=== PATIENT | male | born 1990 | race Caucasian/White ===

== ENCOUNTER 2017-03-05 18:26 | Emergency (ER) | payer OTHER ==
[2017-03-05 18:38] VITALS: BP 96/61; PULSE 65; TEMP 98; BMI 17.6
--- NOTE | 2017-03-05 19:17 | PDOC ---
History of Present Illness - General Chief Complaint: Pain Stated Complaint: rt toe pain/swelling Time Seen by Provider: 03/05/17 18:55 History Source: Patient Exam Limitations: No Limitations - History of Present Illness Initial Comments: 03/05/17 19:11 Patient here with complaints of persistent swelling and infection to his left great toenail. 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 Comes in today with a swelling and mass to the medial aspect of that toe is, no purulent drainage today Severity: reports: mild, moderate Pain Location: reports: lower extremity (left great toe) Past History - Travel Traveled outside of the country in the last 30 days: No Close contact w/someone who was outside of country & ill: No - Past Medical History Allergies/Adverse Reactions: Allergies Allergy/AdvReac Type Severity Reaction Status Date / Time No Known Allergies Allergy Verified 03/05/17 18:34 Home Medications: Ambulatory Orders Sulfamethoxazole/Trimethoprim [Bactrim *Ds*] 1 each PO BID #14 tablet 03/05/17 Disorders: Yes (renal cyst) - Immunization History Immunization Up to Date: No - Psycho/Social/Smoking Cessation Hx Anxiety: No Suicidal Ideation: No Smoking History: Never smoked If you are a former smoker, when did you quit?: 2012 Hx Alcohol Use: No Drug/Substance Use Hx: No Substance Use Type: None Trauma Specific PMHX - Complaint Specific PMHX Back Injury: No Neck Injury: No Review of Systems - Review of Systems Able to Perform ROS?: Yes Is the patient limited Welsh proficient: Yes Constitutional: Yes: Symptoms Reported, See HPI. No: Fever, Malaise HEENTM: No: Symptoms Reported Respiratory: No: Symptoms reported Integumentary: Yes: Symptoms Reported, See HPI, Erythema (swelling and pain to lateral aspect to medial left toe) All Other Systems: Reviewed and Negative *Physical Exam - Vital Signs Last Vital Signs Temp Pulse Resp BP Pulse Ox 98 F 65 19 96/61 100 03/05/17 18:35 03/05/17 18:35 03/05/17 18:35 03/05/17 18:35 03/05/17 18:35 - Physical Exam General Appearance: Yes: Appropriately Dressed, Apparent Distress HEENT: positive: TRACY, TMs Normal, Pharynx Normal Respiratory/Chest: positive: Lungs Clear Gastrointestinal/Abdominal: positive: Normal Bowel Sounds, Soft. negative: Tender Extremity: positive: Normal Capillary Refill, Normal Range of Motion, Swelling, Erythema. negative: Normal Inspection Integumentary: positive: Swelling (hygienic granuloma noted to the medial aspect of his left great toe without further redness streaking or evidence of significant cellulitis to his foot. 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 We'll cover with antibiotics and encouraged to soak foot. Motrin for pain relief *DC/Admit/Observation/Transfer Diagnosis at time of Disposition: Pyogenic granuloma - Discharge Dispostion Disposition: HOME Condition at time of disposition: Stable Admit: No - Prescriptions Prescriptions: Sulfamethoxazole/Trimethoprim [Bactrim *Ds*] 1 each PO BID #14 tablet - Patient Instructions Printed Discharge Instructions: DI for Paronychia Additional Instructions: Rest, keep hand elevated Avoid heavy lifting or strenuous activity until healed Soak toe every 2-3 hours while awake for the next 2-3 days to keep continue to allow drainage Reapply bacitracin ointment and bulky dressing after each soaking May use ibuprofen or Tylenol for pain relief Followup with private physician in one to 2 days for wound check as needed Return immediately to emergency department or private doctor's for worsening redness, swelling, pain, streaking Take all of antibiotics until completed - Post Discharge Activity Work/School Note: Back to Work
== END 2017-03-05 19:19 | disposition home or self-care (01) ==
LOC: JERFT 18:26
DX: L98.0 Pyogenic granuloma (principal)
CPT/HCPCS: 99281-25

== ENCOUNTER 2019-08-23 20:15 | Emergency (ER) | payer SELFPAY ==
--- NOTE | 2019-08-23 20:56 | PDOC ---
Rapid Medical Evaluation Time Seen by Provider: 08/23/19 20:52 Medical Evaluation: Allergies Allergy/AdvReac Type Severity Reaction Status Date / Time No Known Allergies Allergy Verified 03/05/17 18:34 08/23/19 20:54 Pt c/o: lower back pain since last night, now with neck pain and left sided chest pressure constantly since last night, pain to chest worse with deep breathing Pt on brief exam: vss, no reproducible cp, lcta, Pt ordered for: ekg Pt to proceed to the ED Discharge Disposition - Diagnosis Pain - Referrals - Patient Instructions - Post Discharge Activity
[2019-08-23 20:57] VITALS: BMI 16.7
--- NOTE | 2019-08-24 00:24 | PDOC ---
History of Present Illness - General Chief Complaint: Pain Stated Complaint: abd pain Time Seen by Provider: 08/23/19 20:52 - History of Present Illness Initial Comments: Cali Powell is a 29yo man with no medical history who presents with low back pain and chest/upper abdominal pain for several days. He states that the pain is present whenever he is awake. There is no association with exertion, position , breathing, or movement, though it worsens when he is upset. He feels that the only thing that improves the pain is talking to friends or family. He denies any associated lightheadedness, difficulty breathing, sweating, nausea, vomiting , or other symptoms. He endorses drinking 15 drinks per day over the past 3-4 months after breatking up with his girlfriend; he also endorses a previous history of alcohol abuse. He has not had a drink for 3-4 days. He has never had withdrawal or seizures in the past. Past History - Past Medical History Allergies/Adverse Reactions: Allergies Allergy/AdvReac Type Severity Reaction Status Date / Time No Known Allergies Allergy Verified 08/23/19 20:57 Home Medications: Ambulatory Orders Sulfamethoxazole/Trimethoprim [Bactrim *Ds*] 1 each PO BID #14 tablet 03/05/17 COPD: No Disorders: Yes (renal cyst) - Immunization History Immunization Up to Date: No - Psycho Social/Smoking Cessation Hx Smoking History: Current every day smoker Have you smoked in the past 12 months: Yes Number of Cigarettes Smoked Daily: 5 If you are a former smoker, when did you quit?: 2012 Information on smoking cessation initiated: No Hx Alcohol Use: No Drug/Substance Use Hx: No Substance Use Type: None Review of Systems - Review of Systems Comments:: General: No fevers, no chills, no weight or appetite change, no malaise HEENT: No changes in vision, no changes in hearing, no congestion, no sore throat CV: + chest pain (resolved), no palpitations, no LE edema Pulm: No SOB, no cough, no wheezing GI: No nausea or vomiting, no change in bowel habits, no melena : No frequency, no urgency, no dysuria Musc: + low back pain, no joint swelling, no recent injury Skin: No rash, no lesions, no erythema Endo: No excessive thirst, no heat/cold intolerance Heme: No unusual bruising or bleeding, no swollen glands Neuro: No syncope, no numbness/tingling, no focal weakness Vasc: No claudication Psych: + upset recently 2/2 breakup w/ girlfriend, no SI or HI *Physical Exam - Vital Signs Last Vital Signs Temp Pulse Resp BP Pulse Ox 97.9 F 103 H 18 126/81 100 08/23/19 20:54 08/23/19 20:54 08/23/19 20:54 08/23/19 20:54 08/23/19 20:54 - Physical Exam General: Comfortable, no acute distress HEENT: Atraumatic, PERRL, EOMI, MMM, voice normal, normal neck ROM. No tongue fasciculations Cards: RRR, no murmur appreciated. No reproducible pain Pulm: Comfortable on room air, clear to auscultation bilaterally Abd: Soft, nontender, nondistended : No CVA tenderness Ext: Atraumatic. No LE edema. ROM intact. Strength 5/5 and equal bilaterally Vasc: Extremities WWP Skin: Normal color, no rashes or lesions Neuro: A&Ox3, CN grossly intact, normal speech, motor/sensory grossly intact and symmetric. Tremors in hands when extended Psych: Mood appropriate to situation ED Treatment Course - LABORATORY CBC & Chemistry Diagram: 08/24/19 00:50 08/24/19 00:50 Medical Decision Making - Medical Decision Making 08/24/19 00:23 Cali Powell is a 29yo man with no medical history who presents with low back pain and chest/upper abdominal pain for several days. The pain improves or resolves when he speaks with friends and family, and he denies any associated symptoms. He endorses drinking 15 drinks per day, no alcohol for the past 3 days. He has never had withdrawal or seizures in the past. - Pain that improves following conversation w/ family most likely due to anxiety. May also be musculoskeletal. Unlikely cardiac in a young, otherwise healthy person with no known risk factors. - EKG completed from triage. NSR, HR 94, normal axis, normal intervals. Prominent t-waves in V3 and V4, but no ST changes. - CBC, CMP to evaluate for electrolyte abnormalities - Acetaminophen for pain - Librium for slight shakiness - Will discuss rehab/detox 01/15/20 01:42 - Labs unremarkable - Pt reports pain is now resolved. Requesting to be discharged - Advised to go to detox, but pt says he will consider going tomorrow. Does not want to be sent to detox from the ED. - Will discharge home with PMD follow up Discussed with Dr Joel Larson PGY2 Discharge - Discharge Information Problems reviewed: Yes Clinical Impression/Diagnosis: Pain, Alcohol abuse Condition: Stable Disposition: HOME - Admission No - Follow up/Referral - Patient Discharge Instructions Patient Printed Discharge Instructions: DI for Alcohol Abuse Additional Instructions: Discharge Instructions: You were seen in the emergency department for pain. Your blood tests and EKG did not show any concerning changes. Your symptoms may be partially due to your alcohol abuse and anxiety. Home Care and Follow Up: - You may use over the counter medications as needed for pain at home. 650- 1000mg acetaminophen (Tylenol) or 600mg ibuprofen (Motrin or Advil) can be used every 6-8 hours. If needed for continued pain, these medications may be alternated every 3-4 hours. For example, if you take ibuprofen at 9am, you may take acetaminophen at noon, ibuprofen at 3pm, etc. - It is strongly recommended that you take ibuprofen with food to help prevent stomach irritation. - Consider Pepcid or Xantac daily for stomach irritation - You may buy a numbing patch that contains lidocaine (the patch is 4% lidocaine ) that can be placed over the areas of greatest pain. The lidocaine patch may be placed for 12 hours then removed for 12 hours. - Try using an ice pack for 20 minutes every hour or a heating pad for additional pain control. These should NOT be used over the lidocaine patch, but you may place them over the areas of pain while the patch is off. - Do not stop moving around. As much as you can tolerate, continue to do light exercise and stretching exercises. Increase your activity level as much as you can tolerate daily. - It is strongly recommended that you go to detox while you stop drinking alcohol. You may go to [address] - Seek immediate medical care if you have significant worsening of your symptoms , chest pain with exercise, difficulty breathing, or any other medical emergency. Instrucciones de descarga: Te vieron en el departamento de emergencias por dolor. Chinmay anlisis de sourav y EKG no mostraron cambios preocupantes. Chinmay sntomas pueden deberse en parte a weller abuso de alcohol y ansiedad. Cuidados en el hogar y seguimiento: - Puede usar medicamentos de venta jason segn sea necesario para el dolor en el hogar. Se pueden usar 650-1000 mg de acetaminofeno (Tylenol) o 600 mg de ibuprofeno (Motrin o Advil) cada 6-8 horas. Si es necesario para el dolor continuo, estos medicamentos se pueden alternar cada 3-4 horas. Por ejemplo, si shlomo ibuprofeno a las 9 a.m., puede christine acetaminofeno al medioda, ibuprofeno a las 3 p.m., etc. - Se recomienda encarecidamente que tome ibuprofeno con alimentos para ayudar a prevenir la irritacin estomacal. - Considere Pepcid o Xantac diariamente para la irritacin estomacal - Puede comprar un parche adormecedor que contiene lidocana (el parche es 4% de lidocana) que se puede colocar sobre las reas de mayor dolor. El parche de lidocana puede colocarse tomy 12 horas y luego retirarse tomy 12 horas. - Intente usar deborah compresa de hielo tomy 20 minutos cada hora o deborah almohadilla trmica para controlar el dolor adicional. Estos NO deben usarse sobre el parche de lidocana, naty puede colocarlos sobre las reas de dolor mientras el parche est apagado. - No dejes de moverte. Tanto alejandro pueda tolerar, contine haciendo ejercicios ligeros y ejercicios de estiramiento. Aumente weller nivel de actividad tanto alejandro pueda tolerar diariamente. - Se recomienda encarecidamente que vaya a desintoxicarse mientras mychal de beber alcohol. Puede ir a [address] - Busque atencin mdica inmediata si tiene un empeoramiento significativo de chinmay sntomas, dolor en el pecho al hacer ejercicio, dificultad para respirar o cualquier otra emergencia mdica. Print Language: MACEDONIAN - Post Discharge Activity
[2019-08-24] MEDS ORDERED: chlordiazePOXIDE HCL 25 MG CAPSULE PO ONE (00:25)
[2019-08-24] MEDS ORDERED: ACETAMINOPHEN 325 MG TABLET (FP) PO ONE (00:25)
[2019-08-24] MEDS ORDERED: ACETAMINOPHEN 325 MG TABLET (FP) ONE (00:44)
[2019-08-24] MEDS ORDERED: chlordiazePOXIDE HCL 25 MG CAPSULE ONE (00:44)
[2019-08-24 00:55] LABS: BASO % 0.6 % (0-2.0); EOS % 0.7 % (0-4.5); HEMATOCRIT 47.4 % (35.4-49); HEMOGLOBIN 16.5 GM/dL (11.7-16.9); LYMPH % 20.7 % (8-40); MCH 31.9 pg (25.7-33.7); MCHC 34.9 g/dl (32.0-35.9); MEAN CELL VOLUME 91.6 fl (80-96); MEAN PLT VOLUME 8.6 fl (7.5-11.1); PLATELET COUNT 225 K/MM3 (134-434); RBC 5.18 M/mm3 (4.00-5.60); RDW 13.5 % (11.9-15.9); WHITE BLOOD COUNT 6.4 K/mm3 (4.0-10.0)
[2019-08-24 01:24] LABS: ALBUMIN 4.3 g/dl (3.4-5.0); BILIRUBIN,TOTAL 2.4 mg/dL (0.2-1); CALCIUM 9.1 mg/dL (8.5-10.1); CREATININE 0.7 mg/dL (0.55-1.3); POTASSIUM 4.1 mmol/L (3.5-5.1); TOT PROT 8.8 g/dl (6.4-8.2)
--- NOTE | 2019-08-24 01:48 | PDOC ---
Documentation entered by Ashleigh Quijano SCRIBE, acting as scribe for Mercedes Maldonado MD. Mercedes Maldonado MD: This documentation has been prepared by the Samm valentin Nirvannie, SCRIBE, under my direction and personally reviewed by me in its entirety. I confirm that the documentation accurately reflects all work, treatment, procedures, and medical decision making performed by me. Attending Attestation - Resident Resident Name: Priscilla Larson - ED Attending Attestation I have performed the following: I have examined & evaluated the patient, The case was reviewed & discussed with the resident, I agree w/resident's findings & plan, Exceptions are as noted - HPI HPI: 08/24/19 00:46 The patient is a 29 year old male, with a significant past medical history of alcohol abuse, who presents to the emergency department with diffuse body aches. As per patient, he had a history of alcohol abuse but, quit while he was dating his partner. Patient endorses shortly after ending his relationship he relapsed, consuming approximately 15 drinks per day. Patient stopped consuming alcohol 3 days ago just prior to the onset of his symptoms. He denies any history of withdrawal seizures. He denies any recent shortness of breath. Allergies: NKDA - Physicial Exam PE: 08/24/19 01:43 29 yo male has c/o body pain and initially was seeking detox but he now feels he wants to go home head ncat neck supple lungs cta b/l cvs [id number] abd nontender neuro axox3,ambulatory,motor strength 5/5 b/l - Medical Decision Making 08/24/19 01:47 Review of his labs shows total bili equal to 2.4 and a mild bump in his LFTs Patient does not have any current abdominal pain nausea or vomiting He stopped drinking 3 days ago He said that the pain in his legs and chest resolves when he talks to family and friends History of alcoholism
[2019-08-24 01:53] VITALS: BP 117/64; PULSE 78; TEMP 98.1
--- NOTE | 2019-08-24 10:02 | EKG ---
Test Reason : Blood Pressure : / mmHG Vent. Rate : 094 BPM Atrial Rate : 094 BPM P-R Int : 144 ms QRS Dur : 074 ms QT Int : 322 ms P-R-T Axes : 073 086 066 degrees QTc Int : 402 ms NORMAL SINUS RHYTHM NORMAL ECG WHEN COMPARED WITH ECG OF 01-AUG-2007 19:57, CRITERIA FOR SEPTAL INFARCT ARE NO LONGER PRESENT Confirmed by REN HAYS MD ([id number]) on 08/24/2019 10:01:30 AM Referred By: Confirmed By:REN HAYS MD
== END 2019-08-24 02:12 | disposition home or self-care (01) ==
LOC: JER 20:15
DX: F10.10 Alcohol abuse, uncomplicated (principal); F17.210 Nicotine dependence, cigarettes, uncomplicated
CPT/HCPCS: 36415; 80053; 85025; 93005; 93010; 99282-25

== ENCOUNTER 2021-09-01 13:36 | Emergency (ER) | payer SELFPAY ==
[2021-09-01 13:42] VITALS: TEMP 99; BMI 18.2
[2021-09-01] MEDS ORDERED: KETOROLAC TROMETHAMINE 30 MG/1 ML VIAL IVPUSH ONE (14:28)
[2021-09-01] MEDS ORDERED: ONDANSETRON 4 MG/2 ML VIAL IVPUSH ONE (14:28)
[2021-09-01] MEDS ORDERED: SODIUM CHLORIDE 0.9% 500 ML INFUS.BAG IV ONE (14:28)
[2021-09-01] MEDS ORDERED: KETOROLAC TROMETHAMINE 30 MG/1 ML VIAL ONE (14:41)
[2021-09-01] MEDS ORDERED: ONDANSETRON 4 MG/2 ML VIAL ONE (14:41)
[2021-09-01 14:49] LABS: BASO % 0.1 % (0-2.0); HEMATOCRIT 42.1 % (35.4-49); HEMOGLOBIN 14.5 GM/dL (11.7-16.9); LYMPH % 7.2 % (8-40); MCH 29.8 pg (25.7-33.7); MCHC 34.3 g/dl (32.0-35.9); MEAN CELL VOLUME 86.8 fl (80-96); MEAN PLT VOLUME 8.6 fl (7.5-11.1); MONO % 4.3 % (3.8-10.2); NEUT % 88.4 % (42.8-82.8); PLATELET COUNT 154 10^3/uL (134-434); RBC 4.85 M/mm3 (4.00-5.60); RDW 12.1 % (11.9-15.9); WHITE BLOOD COUNT 11.3 K/mm3 (4.0-10.0)
[2021-09-01 15:06] LABS: BLOOD UREA NITROGEN 10.4 mg/dL (7-18)
[2021-09-01 15:09] LABS: CREATININE 0.8 mg/dL (0.55-1.3)
[2021-09-01 15:11] LABS: BILIRUBIN,TOTAL 1.8 mg/dL (0.2-1); TOT PROT 7.7 g/dl (6.4-8.2)
[2021-09-01] MEDS ORDERED: LIDOCAINE VISCOUS 2% ORAL/TOP 15 ML UNIT-DOSE CUP MM ONE (17:10)
[2021-09-01] MEDS ORDERED: MAG HYDROX/AL HYDROX/SIMETH 30 ML UNIT-DOSE CUP PO ONE (17:10)
[2021-09-01 17:15] VITALS: BP 98/46; PULSE 89
[2021-09-01] MEDS ORDERED: LIDOCAINE VISCOUS 2% ORAL/TOP 15 ML UNIT-DOSE CUP ONE (17:16)
[2021-09-01] MEDS ORDERED: MAG HYDROX/AL HYDROX/SIMETH 30 ML UNIT-DOSE CUP ONE (17:17)
== END 2021-09-01 17:28 | disposition home or self-care (01) ==
LOC: JER 13:36
PROC: 3E033GC Introduction of Other Therapeutic Substance into Peripheral Vein, Percutaneous Approach (ICD-10-PCS; principal; 2021-09-01)
DX: R10.84 Generalized abdominal pain (principal)
CPT/HCPCS: 36415; 76705-TC; 80053; 83690; 85025; 99284-25

== ENCOUNTER 2023-04-06 15:42 | Emergency (ER) | payer SELFPAY ==
[2023-04-06 16:08] VITALS: BMI 18.2
[2023-04-06] MEDS ORDERED: FAMOTIDINE 20 MG/50 ML IVPB 20 MG/50 ML MG IVPB ONE (17:35)
[2023-04-06] MEDS ORDERED: MAG HYDROX/AL HYDROX/SIMETH 30 ML UNIT-DOSE CUP PO ONE (17:36)
[2023-04-06] MEDS ORDERED: chlordiazePOXIDE HCL 25 MG CAPSULE PO ONE (17:36)
[2023-04-06] MEDS ORDERED: ACETAMINOPHEN 1000 MG/100 ML BAG IVPB ONE (17:36)
[2023-04-06] MEDS ORDERED: FAMOTIDINE 10 MG/ML VIAL IVPB ONE (17:50)
[2023-04-06] MEDS ORDERED: MAG HYDROX/AL HYDROX/SIMETH 30 ML UNIT-DOSE CUP ONE (17:50)
[2023-04-06] MEDS ORDERED: chlordiazePOXIDE HCL 25 MG CAPSULE ONE (17:50)
[2023-04-06] MEDS ORDERED: ACETAMINOPHEN INJECTION 100 ML IVPB ONE (17:50)
[2023-04-06 18:18] LABS: BASO % 0.4 % (0-2.0); EOS % 0.2 % (0-4.5); HEMATOCRIT 39.6 % (35.4-49); HEMOGLOBIN 13.9 GM/dL (11.7-16.9); LYMPH % 21.1 % (8-40); MCH 30.1 pg (25.7-33.7); MCHC 35.1 g/dl (32.0-35.9); MEAN CELL VOLUME 85.9 fl (80-96); MEAN PLT VOLUME 8.2 fl (7.5-11.1); MONO % 8.8 % (3.8-10.2); NEUT % 69.5 % (42.8-82.8); PLATELET COUNT 204 10^3/uL (134-434); RBC 4.61 M/mm3 (4.00-5.60); RDW 13.5 % (11.9-15.9); WHITE BLOOD COUNT 5.4 K/mm3 (4.0-10.0)
[2023-04-06 18:36] LABS: POTASSIUM 3.4 mmol/L (3.5-5.1)
[2023-04-06 18:38] LABS: CALCIUM 8.1 mg/dL (8.5-10.1)
[2023-04-06 18:39] LABS: ALBUMIN 3.7 g/dl (3.4-5.0); BLOOD UREA NITROGEN 5.3 mg/dL (7-18); MAGNESIUM 1.8 mg/dL (1.8-2.4)
[2023-04-06 18:42] LABS: CREATININE 0.6 mg/dL (0.55-1.3)
[2023-04-06 18:43] LABS: TOT PROT 7.7 g/dl (6.4-8.2)
[2023-04-06 18:44] LABS: BILIRUBIN,TOTAL 0.4 mg/dL (0.2-1)
[2023-04-06 20:19] VITALS: BP 107/72; PULSE 78; RESP 16; TEMP 97.8
== END 2023-04-06 21:12 | disposition home or self-care (01) ==
LOC: JER 15:42
PROC: 3E033GC Introduction of Other Therapeutic Substance into Peripheral Vein, Percutaneous Approach (ICD-10-PCS; principal; 2023-04-06)
PROC: 3E033NZ Introduction of Analgesics, Hypnotics, Sedatives into Peripheral Vein, Percutaneous Approach (ICD-10-PCS; 2023-04-06)
DX: R07.9 Chest pain, unspecified (principal); F10.10 Alcohol abuse, uncomplicated; R10.13 Epigastric pain; R19.7 Diarrhea, unspecified
CPT/HCPCS: 36415; 71045-TC-FY; 80053; 83735; 84484; 85025; 93005; 93010; 99285-25

== ENCOUNTER 2023-05-17 17:26 | Emergency (ER) | payer SELFPAY ==
[2023-05-17 17:41] VITALS: BMI 18.2
[2023-05-17] MEDS ORDERED: SODIUM CHLORIDE 1,000 ML IV STA (18:16)
[2023-05-17] MEDS ORDERED: MAG HYDROX/AL HYDROX/SIMETH -MYLANTA- ORAL SUSPENSION PO ONE (18:17)
[2023-05-17] MEDS ORDERED: diazePAM CARPU-JECT 10 MG/2 ML DISP.SYRIN IVPUSH ONE (18:24)
[2023-05-17] MEDS ORDERED: ACETAMINOPHEN 1000 MG/100 ML BAG IVPB ONE (18:26)
[2023-05-17] MEDS ORDERED: FAMOTIDINE 20 MG/50 ML IVPB 20 MG/50 ML MG IVPB ONE ×2 (18:30)
[2023-05-17] MEDS ORDERED: MAG HYDROX/AL HYDROX/SIMETH 30 ML UNIT-DOSE CUP ONE (18:30)
[2023-05-17] MEDS ORDERED: diazePAM CARPU-JECT 10 MG/2 ML DISP.SYRIN ONE (18:53)
[2023-05-17 19:08] LABS: BASO % 0.5 % (0-2.0); EOS % 0.3 % (0-4.5); HEMATOCRIT 40.1 % (35.4-49); HEMOGLOBIN 14.2 GM/dL (11.7-16.9); LYMPH % 22.4 % (8-40); MCH 31.2 pg (25.7-33.7); MCHC 35.5 g/dl (32.0-35.9); MEAN CELL VOLUME 87.9 fl (80-96); MEAN PLT VOLUME 7.9 fl (7.5-11.1); MONO % 13.4 % (3.8-10.2); NEUT % 63.4 % (42.8-82.8); PLATELET COUNT 225 10^3/uL (134-434); RBC 4.56 M/mm3 (4.00-5.60); WHITE BLOOD COUNT 5.2 K/mm3 (4.0-10.0)
[2023-05-17] MEDS ORDERED: ACETAMINOPHEN INJECTION 100 ML IVPB ONE (19:08)
[2023-05-17 19:19] LABS: POTASSIUM 3.3 mmol/L (3.5-5.1)
[2023-05-17 19:21] LABS: CALCIUM 8.1 mg/dL (8.5-10.1)
[2023-05-17 19:22] LABS: ALBUMIN 3.8 g/dl (3.4-5.0); BLOOD UREA NITROGEN 7.1 mg/dL (7-18); MAGNESIUM 2.1 mg/dL (1.8-2.4)
[2023-05-17 19:24] LABS: CREATININE 0.7 mg/dL (0.55-1.3)
[2023-05-17 19:26] LABS: TOT PROT 7.6 g/dl (6.4-8.2)
[2023-05-17] MEDS ORDERED: POTASSIUM CHLORIDE TABS 20 MEQ TABLET.ER (FP) PO ONE ×2 (20:37→21:04)
[2023-05-17 21:12] VITALS: BP 102/68; PULSE 87; RESP 17; TEMP 98.6
== END 2023-05-17 21:22 | disposition home or self-care (01) ==
LOC: JER 17:26
PROC: 3E033GC Introduction of Other Therapeutic Substance into Peripheral Vein, Percutaneous Approach (ICD-10-PCS; principal; 2023-05-17)
PROC: 3E033NZ Introduction of Analgesics, Hypnotics, Sedatives into Peripheral Vein, Percutaneous Approach (ICD-10-PCS; 2023-05-17)
PROC: 3E033GC Introduction of Other Therapeutic Substance into Peripheral Vein, Percutaneous Approach (ICD-10-PCS; 2023-05-17)
PROC: 3E0337Z Introduction of Electrolytic and Water Balance Substance into Peripheral Vein, Percutaneous Approach (ICD-10-PCS; 2023-05-17)
DX: R10.13 Epigastric pain (principal); R07.9 Chest pain, unspecified; R07.0 Pain in throat; K21.9 Gastro-esophageal reflux disease without esophagitis; F10.90 Alcohol use, unspecified, uncomplicated; J02.9 Acute pharyngitis, unspecified; R11.0 Nausea; Y90.9 Presence of alcohol in blood, level not specified
CPT/HCPCS: 36415; 80053; 83690; 83735; 84484; 85025; 93005; 93010; 99284-25

== ENCOUNTER 2023-06-16 19:22 | Emergency (ER) | payer SELFPAY ==
[2023-06-16 19:31] VITALS: TEMP 97.9; BMI 18.2
[2023-06-16] MEDS ORDERED: ACETAMINOPHEN 1000 MG/100 ML BAG IVPB ONE (20:01)
[2023-06-16] MEDS ORDERED: METOCLOPRAMIDE HCL INJECTION 10 MG/2 ML VIAL IVPUSH ONE (20:01)
[2023-06-16] MEDS ORDERED: METOCLOPRAMIDE HCL INJECTION 10 MG/2 ML VIAL ONE (20:07)
[2023-06-16] MEDS ORDERED: ACETAMINOPHEN INJECTION 100 ML IVPB ONE (20:07)
[2023-06-16 20:19] LABS: BASO % 0.3 % (0-2.0); EOS % 1.2 % (0-4.5); HEMATOCRIT 43.3 % (35.4-49); HEMOGLOBIN 14.9 GM/dL (11.7-16.9); LYMPH % 28.3 % (8-40); MCH 30.4 pg (25.7-33.7); MCHC 34.3 g/dl (32.0-35.9); MEAN CELL VOLUME 88.6 fl (80-96); MEAN PLT VOLUME 8.3 fl (7.5-11.1); MONO % 8.1 % (3.8-10.2); NEUT % 62.1 % (42.8-82.8); PLATELET COUNT 246 10^3/uL (134-434); RBC 4.89 M/mm3 (4.00-5.60); RDW 13.2 % (11.9-15.9); WHITE BLOOD COUNT 6.6 K/mm3 (4.0-10.0)
[2023-06-16 20:41] LABS: POTASSIUM 3.4 mmol/L (3.5-5.1)
[2023-06-16 20:43] LABS: ALBUMIN 4.3 g/dl (3.4-5.0); BLOOD UREA NITROGEN 10.3 mg/dL (7-18); CALCIUM 8.6 mg/dL (8.5-10.1)
[2023-06-16 20:46] LABS: CREATININE 0.5 mg/dL (0.55-1.3)
[2023-06-16 20:47] LABS: TOT PROT 8.4 g/dl (6.4-8.2)
[2023-06-16] MEDS ORDERED: MAG HYDROX/ALH/SMC/DPHA/LIDO 240 ML MOUTHWASH MM ONE (20:47)
[2023-06-16 20:48] LABS: BILIRUBIN,TOTAL 1.1 mg/dL (0.2-1)
[2023-06-16 23:12] VITALS: BP 105/57; PULSE 71; RESP 16
[2023-06-17] MEDS ORDERED: MAG HYDROX/ALH/SMC/DPHA/LIDO 240 ML MOUTHWASH MM SCH
[2023-06-17] MEDS ORDERED: MAG HYDROX/ALH/SMC/DPHA/LIDO 240 ML MOUTHWASH MM ONE (20:20)
== END 2023-06-16 23:15 | disposition home or self-care (01) ==
LOC: JER 19:22
PROC: 3E033NZ Introduction of Analgesics, Hypnotics, Sedatives into Peripheral Vein, Percutaneous Approach (ICD-10-PCS; principal; 2023-06-16)
PROC: 3E033GC Introduction of Other Therapeutic Substance into Peripheral Vein, Percutaneous Approach (ICD-10-PCS; 2023-06-16)
DX: R10.13 Epigastric pain (principal); K29.00 Acute gastritis without bleeding; R11.0 Nausea; Z20.822 Contact with and (suspected) exposure to COVID-19
CPT/HCPCS: 0241U-QW; 36415; 76705-TC; 80053; 82150; 83605; 83690; 84484; 85025; 93005; 93010; 99285-25

== ENCOUNTER 2023-10-25 21:45 | Emergency (ER) | payer SELFPAY ==
[2023-10-25 21:49] VITALS: BMI 17.4
[2023-10-25] MEDS ORDERED: ACETAMINOPHEN INJECTION 100 ML IVPB ONE (22:52)
[2023-10-25] MEDS ORDERED: FAMOTIDINE 20 MG/50 ML IVPB 20 MG/50 ML MG IVPB ONE ×2 (22:53→22:55)
[2023-10-25] MEDS ORDERED: MAG HYDROX/AL HYDROX/SIMETH 30 ML UNIT-DOSE CUP ONE (22:53)
[2023-10-25] MEDS: ACETAMINOPHEN 1000 MG/100 ML BAG IVPB ONE (23:14)
[2023-10-25] MEDS: MAG HYDROX/AL HYDROX/SIMETH 30 ML UNIT-DOSE CUP PO ONE (23:14)
[2023-10-25] MEDS: SODIUM CHLORIDE 0.9% 500 ML INFUS.BAG IV ONE (23:14)
[2023-10-25 23:18] LABS: BASO % 0.4 % (0-2.0); EOS % 0.6 % (0-4.5); HEMATOCRIT 43.7 % (35.4-49); HEMOGLOBIN 15.3 GM/dL (11.7-16.9); LYMPH % 31.8 % (8-40); MCH 30.2 pg (25.7-33.7); MCHC 35.1 g/dl (32.0-35.9); MEAN PLT VOLUME 7.7 fl (7.5-11.1); MONO % 9.1 % (3.8-10.2); NEUT % 58.1 % (42.8-82.8); PLATELET COUNT 216 10^3/uL (134-434); RBC 5.08 M/mm3 (4.00-5.60); RDW 13.3 % (11.9-15.9); WHITE BLOOD COUNT 6.4 K/mm3 (4.0-10.0)
[2023-10-25] MEDS: FAMOTIDINE 20 MG/50 ML IVPB 20 MG/50 ML MG IVPB ONE (23:23)
[2023-10-25 23:33] LABS: INR 1.08 (0.83-1.09); PROTHROMBIN TIME (PATIENT) 12.5 SEC (9.7-13.0)
[2023-10-25 23:35] LABS: ACTIVATED PTT 29.5 SECONDS (25.2-36.5)
[2023-10-25 23:40] LABS: POTASSIUM 3.6 mmol/L (3.5-5.1)
[2023-10-25 23:43] LABS: BLOOD UREA NITROGEN 6.7 mg/dL (7-18)
[2023-10-25 23:44] LABS: ALBUMIN 4.1 g/dl (3.4-5.0)
[2023-10-25 23:46] LABS: CREATININE 0.6 mg/dL (0.55-1.3)
[2023-10-25 23:48] LABS: BILIRUBIN,TOTAL 1.6 mg/dL (0.2-1); TOT PROT 8.3 g/dl (6.4-8.2)
[2023-10-25 23:58] LABS: EPI CELLS 8 /uL (0-25.1); HYALINE CASTS 0 /uL (0-3.1); PH,URINE 6.5 (5.0-8.0); URINE APPEARANCE CLEAR; URINE BACTERIA 6 /uL (0-1359); URINE BILIRUBIN NEGATIVE (NEGATIVE); URINE COLOR YELLOW; URINE GLUCOSE (UA) NEGATIVE (NEGATIVE); URINE KETONE NEGATIVE (NEGATIVE); URINE LEUK ESTERASE NEGATIVE (NEGATIVE); URINE NITRITE NEGATIVE (NEGATIVE); URINE PROTEIN 1+ (NEGATIVE); URINE RBC 133 /uL (0-23.9); URINE UROBILINOGEN 0.2 mg/dL (0.2-1.0); URINE WBC 17 /uL (0-25.8)
[2023-10-26 03:44] VITALS: BP 136/78; PULSE 88; RESP 18; TEMP 98.8
== END 2023-10-26 03:44 | disposition home or self-care (01) ==
LOC: JER 21:45
PROC: 3E033GC Introduction of Other Therapeutic Substance into Peripheral Vein, Percutaneous Approach (ICD-10-PCS; principal; 2023-10-25)
PROC: 3E033NZ Introduction of Analgesics, Hypnotics, Sedatives into Peripheral Vein, Percutaneous Approach (ICD-10-PCS; 2023-10-25)
DX: R10.84 Generalized abdominal pain (principal); R31.29 Other microscopic hematuria; K29.70 Gastritis, unspecified, without bleeding; R63.0 Anorexia; R11.0 Nausea; Z20.822 Contact with and (suspected) exposure to COVID-19
CPT/HCPCS: 0241U-QW; 36415; 71046-TC-FY; 74177-TC; 80053; 80307; 81003; 83690; 84484; 85025; 85610; 85730; 87086; 93005; 93010; 99285-25; J0131; Q9967

== ENCOUNTER 2023-12-27 22:53 | Emergency (ER) | payer SELFPAY ==
[2023-12-27 23:00] VITALS: BP 99/64; RESP 20; TEMP 97.7; BMI 18.2
[2023-12-27] MEDS ORDERED: ACETAMINOPHEN 325 MG TABLET (FP) ONE (23:36)
[2023-12-27] MEDS: ACETAMINOPHEN 325 MG TABLET (FP) PO ONE (23:39)
[2023-12-28 00:04] VITALS: PULSE 95
== END 2023-12-28 01:28 | disposition home or self-care (01) ==
LOC: JER 22:53
DX: M79.661 Pain in right lower leg (principal); W23.0XXA Caught, crushed, jammed, or pinched between moving objects, initial encounter
CPT/HCPCS: 73590-TC-RT-FY; 99283-25

== ENCOUNTER 2024-02-28 03:18 | Emergency (ER) | payer SELFPAY ==
[2024-02-28 03:22] VITALS: BMI 21.9
[2024-02-28] MEDS ORDERED: ONDANSETRON 4 MG/2 ML VIAL ONE (03:52)
[2024-02-28] MEDS ORDERED: ACETAMINOPHEN INJECTION 100 ML IVPB ONE (03:52)
[2024-02-28] MEDS ORDERED: MAG HYDROX/AL HYDROX/SIMETH 30 ML UNIT-DOSE CUP ONE (03:52)
[2024-02-28] MEDS ORDERED: PANTOPRAZOLE SODIUM 40 MG/100 ML BAG IVPB ONE (03:52)
[2024-02-28] MEDS: ACETAMINOPHEN 1000 MG/100 ML BAG IVPB ONE (04:40)
[2024-02-28] MEDS: PANTOPRAZOLE SODIUM 40 MG VIAL IVPUSH ONE (04:55)
[2024-02-28] MEDS: MAG HYDROX/AL HYDROX/SIMETH 30 ML UNIT-DOSE CUP PO ONE (04:55)
[2024-02-28] MEDS: ONDANSETRON 4 MG/2 ML VIAL IVPUSH ONE (04:55)
[2024-02-28] MEDS: LACTATED RINGERS SOLUTION 1000 ML INFUS.BAG IV ONE (04:55)
[2024-02-28 05:01] LABS: BASO % 0.4 % (0-2.0); EOS % 1.5 % (0-4.5); HEMATOCRIT 41.2 % (35.4-49); HEMOGLOBIN 14.5 GM/dL (11.7-16.9); LYMPH % 25.7 % (8-40); MCH 30.6 pg (25.7-33.7); MCHC 35.1 g/dl (32.0-35.9); MEAN CELL VOLUME 87.2 fl (80-96); MEAN PLT VOLUME 7.9 fl (7.5-11.1); NEUT % 63.4 % (42.8-82.8); PLATELET COUNT 189 10^3/uL (134-434); RBC 4.73 M/mm3 (4.00-5.60); RDW 13.7 % (11.9-15.9); WHITE BLOOD COUNT 4.1 K/mm3 (4.0-10.0)
[2024-02-28 05:20] LABS: POTASSIUM 3.7 mmol/L (3.5-5.1)
[2024-02-28 05:22] LABS: ALBUMIN 3.9 g/dl (3.4-5.0); BLOOD UREA NITROGEN 9.1 mg/dL (7-18); CALCIUM 8.8 mg/dL (8.5-10.1); MAGNESIUM 2.3 mg/dL (1.8-2.4)
[2024-02-28 05:25] LABS: CREATININE 0.5 mg/dL (0.55-1.3)
[2024-02-28 05:27] LABS: BILIRUBIN,TOTAL 1.2 mg/dL (0.2-1); TOT PROT 7.7 g/dl (6.4-8.2)
[2024-02-28 06:53] VITALS: BP 130/73; PULSE 76; RESP 16; TEMP 98.3
[2024-02-28] MEDS ORDERED: chlordiazePOXIDE HCL 25 MG CAPSULE PO ONE (07:07)
== END 2024-02-28 07:04 | disposition home or self-care (01) ==
LOC: JER 03:18
PROC: 3E033NZ Introduction of Analgesics, Hypnotics, Sedatives into Peripheral Vein, Percutaneous Approach (ICD-10-PCS; principal; 2024-02-28)
PROC: 3E033GC Introduction of Other Therapeutic Substance into Peripheral Vein, Percutaneous Approach (ICD-10-PCS; 2024-02-28)
PROC: 3E033GC Introduction of Other Therapeutic Substance into Peripheral Vein, Percutaneous Approach (ICD-10-PCS; 2024-02-28)
DX: K21.00 Gastro-esophageal reflux disease with esophagitis, without bleeding (principal); K29.20 Alcoholic gastritis without bleeding; F10.988 Alcohol use, unspecified with other alcohol-induced disorder; R10.13 Epigastric pain; R11.0 Nausea; R06.02 Shortness of breath
CPT/HCPCS: 80053; 83690; 83735; 84484; 85025; 93005; 93010; 99284-25; J0131

== ENCOUNTER 2025-04-03 00:33 | Emergency (ER) | payer SELFPAY ==
[2025-04-03 00:41] VITALS: BP 115/86; PULSE 90; RESP 18; TEMP 98.1; BMI 25.0
[2025-04-03] MEDS ORDERED: ACETAMINOPHEN INJECTION 100 ML ONE (02:05)
[2025-04-03] MEDS ORDERED: ONDANSETRON 4 MG/2 ML VIAL ONE (02:06)
[2025-04-03 02:14] LABS: EPI CELLS 1 /uL (0-25.1); HYALINE CASTS 0 /uL (0-3.1); URINE APPEARANCE CLEAR; URINE BACTERIA 8 /uL (0-1359); URINE BILIRUBIN NEGATIVE (NEGATIVE); URINE COLOR YELLOW; URINE GLUCOSE (UA) NEGATIVE (NEGATIVE); URINE KETONE NEGATIVE (NEGATIVE); URINE LEUK ESTERASE NEGATIVE (NEGATIVE); URINE NITRITE NEGATIVE (NEGATIVE); URINE PROTEIN NEGATIVE (NEGATIVE); URINE RBC 13 /uL (0-23.9); URINE UROBILINOGEN 0.2 mg/dL (0.2-1.0); URINE WBC 2 /uL (0-25.8)
[2025-04-03] MEDS: ACETAMINOPHEN 1000 MG/100 ML BAG IVPB ONE (02:19)
[2025-04-03] MEDS: ONDANSETRON 4 MG/2 ML VIAL IVPUSH ONE (02:28)
[2025-04-03] MEDS: SODIUM CHLORIDE 0.9% 500 ML INFUS.BAG IV ONE (02:28)
[2025-04-03 02:41] LABS: ABSOLUTE IMMATURE GRANULOCYTES 0.03 x10^3/uL (0.0-0.031); BASOPHILS # 0.04 x10^3/uL (0.01-0.08); EOSINOPHIL % 0.8 % (0.8-7.0); EOSINOPHILS # 0.06 x10^3/uL (0.04-0.54); MCHC 34.3 g/dl (32.3-36.5); MEAN CELL VOLUME 87.4 fl (79.0-92.2); MEAN PLT VOLUME 9.6 fl (9.4-12.4); MONOCYTE # 0.48 x10^3/uL (0.30-0.82); MONOCYTE % 6.6 % (5.3-12.2); RDW 12.9 % (12.0-15.6)
[2025-04-03 03:00] LABS: INR 1.06 (0.83-1.09); PROTHROMBIN TIME (PATIENT) 11.7 SEC (9.7-13.0)
[2025-04-03 03:02] LABS: ACTIVATED PTT 29.9 SECONDS (25.2-36.5)
[2025-04-03 03:27] LABS: TOT PROT 8.6 g/dl (6.4-8.2)
[2025-04-03 03:28] LABS: CO2 25.0 mmol/L (21-32)
[2025-04-03 03:30] LABS: ALK PHOS 101.0 U/L (40-150)
[2025-04-03 03:32] LABS: SGOT/AST 31.0 U/L (5-34); SGPT/ALT 24.0 U/L (0-55)
[2025-04-03 03:33] LABS: CREATININE 0.61 mg/dL (0.55-1.3)
[2025-04-03 05:10] LABS: GLUCOSE,RANDOM 86.0 mg/dL (74-106)
== END 2025-04-03 04:23 | disposition home or self-care (01) ==
LOC: JER 00:33 → MERGE 00:33 → JER 04:23
PROC: 3E033NZ Introduction of Analgesics, Hypnotics, Sedatives into Peripheral Vein, Percutaneous Approach (ICD-10-PCS; principal; 2025-04-03)
PROC: 3E033GC Introduction of Other Therapeutic Substance into Peripheral Vein, Percutaneous Approach (ICD-10-PCS; 2025-04-03)
DX: R10.12 Left upper quadrant pain (principal); R10.32 Left lower quadrant pain; R07.0 Pain in throat; R53.83 Other fatigue; M79.10 Myalgia, unspecified site; R11.0 Nausea; R13.10 Dysphagia, unspecified
CPT/HCPCS: 36415; 74176-TC; 80053; 81003; 83605; 83690; 83735; 85025; 85610; 85730; 86308; 87086; 87651; 93005; 93010; 99285-25